=== PATIENT | female | born 1960 | race Caucasian/White ===

== ENCOUNTER 2016-12-14 21:49 | Inpatient (IN) | payer SELFPAY ==
[~2016-12-14] VITALS: Ht 157.5 cm; Wt 46.9 kg
[2016-12-14] MEDS ORDERED: MORPHINE SULFATE INJ 4 MG/ML DISP.SYRIN ONE (22:15)
[2016-12-14] MEDS ORDERED: ONDANSETRON HCL/PF 4 MG/2 ML VIAL ONE (22:15)
--- NOTE | 2016-12-14 22:15 | NUR ---
PT CAME IN WITH FAMILY FOR ANXIETY, NAUSEA, VOMITING AND GENERALIZED PAIN. SEEN BY MD FOR EVAL. IV ACCESS STARTED. BLOOD DRAWN FOR LABS. PT MEDICATED ORDERED. VSS. SAFETY AND COMFORT MEASURES PROVIDED. WILL MONITOR.
--- NOTE | 2016-12-14 22:22 | NUR ---
GHISLAINE AT BS.
[2016-12-14 22:23] LABS: BASOPHILS # (AUTO) 0.1 /CMM (0.0-0.2); BASOPHILS % (AUTO) 0.5 % (0.0-2.0); EOSINOPHILS # (AUTO) 0.1 /CMM (0.0-0.7); EOSINOPHILS % (AUTO) 0.5 % (0.0-6.0); HEMATOCRIT 39 % (33-45); HEMOGLOBIN 12.9 g/dL (11.5-14.8); LYMPHOCYTES # (AUTO) 4.9 /CMM (0.8-4.8); MEAN CORPUSCULAR HEMOGLOBIN 30 PG (26.0-33.0); MEAN CORPUSCULAR HGB CONC 34 g/dl (31.0-36.0); MEAN CORPUSCULAR VOLUME 90 fL (82-100); MONOCYTES # (AUTO) 0.5 /CMM (0.1-1.30); MONOCYTES % (AUTO) 3.5 % (2.0-12.0); NEUTROPHILS # (AUTO) 8.5 /CMM (1.8-8.9); NEUTROPHILS % (AUTO) 60.5 % (43.0-81.0); PLATELET COUNT (AUTO) 322 /CMM (150-450); RDW COEFFICIENT OF VARIATION 13.1 (11.5-15.0); RED BLOOD CELL COUNT(AUTO) 4.27 MIL/uL (4.0-5.2); WHITE BLOOD COUNT (AUTO) 14.1 K/uL (4.3-11.0)
--- NOTE | 2016-12-14 22:23 | NUR ---
PT IS UNABLE TO PROVIDE URINE SAMPLE AT THIS TIME.
[2016-12-14] MEDS ORDERED: MORPHINE SULFATE INJ 2 MG/ML DISP.SYRIN IV ONE (22:30)
[2016-12-14] MEDS ORDERED: ONDANSETRON HCL/PF 4 MG/2 ML VIAL IVP ONE (22:30)
[2016-12-14] MEDS ORDERED: IV NS 0.9% 1,000 ML BAG IV ONE (22:30)
[2016-12-14 22:38] LABS: CARBON DIOXIDE 29 mmol/L (21-32); CHLORIDE 106 mmol/L (98-107); CREATININE 0.7 mg/dL (0.6-1.3); GLUCOSE 138 mg/dL (74-106); POTASSIUM 3.5 mmol/L (3.5-5.1); SODIUM SERUM 143 mmol/L (136-145); UREA NITROGEN, BLOOD 12 mg/dL (7-18)
[2016-12-14 22:41] LABS: INR 1.06 (0.87-1.13); PROTHROMBIN TIME 11.4 SECS (9.5-12.7)
[2016-12-14 22:43] LABS: ALANINE AMINOTRANSFERASE 19 U/L (12-78); ALKALINE PHOSPHATASE 107 U/L (46-116); ASPARTATE AMINOTRANSFERASE 18 U/L (15-37); BILIRUBIN,DIRECT 0.1 mg/dL (0.0-0.2); BILIRUBIN,TOTAL 0.2 mg/dL (0.2-1.0); LIPASE 219 U/L (73-393); TOTAL PROTEIN, SERUM 3.3 g/dL (6.4-8.2)
[2016-12-14 22:47] LABS: TROPONIN I < 0.017 ng/mL (0.00-0.056)
--- NOTE | 2016-12-14 23:01 | NUR ---
PT STILL UNABLE TO PROVIDE URINE SAMPLE.
--- NOTE | 2016-12-14 23:02 | NUR ---
PT TAKEN TO CT.
--- NOTE | 2016-12-14 23:44 | NUR ---
PT REFUSES TO GIVE URINE SAMPLE. ASSISTANCE OFFERED, BED WEST OFFERED. MADE AWARE.
[2016-12-14] MEDS ORDERED: LORAZEPAM INJ 2 MG/ML VIAL ONE (23:49)
[2016-12-15] MEDS ORDERED: LORAZEPAM INJ 2 MG/ML VIAL IV ONE
[2016-12-15] MEDS ORDERED: CIPROFLOXACIN IV RTU 400 MG in PREMIX 1 EA IV SCH ×2
[2016-12-15] MEDS ORDERED: FLAGYL/NS RTU 500 MG/100 ML PIGGYBACK IV ONE
[2016-12-15] MEDS ORDERED: CIPROFLOXACIN IV RTU 200 ML IV ONE (00:01)
--- NOTE | 2016-12-15 00:20 | NUR ---
Report given to Marycarmen DAVILA for continuation of care.
[2016-12-15 00:46] VITALS: BP 117/73
--- NOTE | 2016-12-15 00:46 | NUR ---
MS RN ADMITTING NOTES: ADMITTED A 56 YO FEMALE PATIENT WHO WAS BROUGHT BY FAMILY TO ER DUE TO ABDOMINAL PAIN AND NAUSEA. PER SON, PATIENT HAD SOME SUSHI THIS NIGHT, AND THEN AFTERWARDS STATED THAT SHE HAD NAUSEA AND ABDOMINAL PAIN. PATIENT WAS BROUGHT TO [facility] FLOOR VIA GURNEY, AOX3, ON ROOM AIR, BREATHING EVEN AND UNLABORED. BREATH SOUNDS CLEAR TO AUSCULTATION. BOWEL SOUNDS HYPOACTIVE. PATIENT'S SON AT BEDSIDE TO HELP TRANSLATE PATIENT SPEAKS THAI, KNOWS ONLY LITTLE [place]. PIV OVER RAC G20 INTACT AND INFUSING WITH FLAGYL IV THAT WAS STARTED IN ER. ADMITTING CARE DONE, VS STABLE. BED IN LOWEST AND LOCKED POSITION AND SIDERAILS UP X3. WILL CONT TO MONITOR. Addendum: 12/15/16 at 0128 by ALEXANDRA MIJARES RN CORRECTED NOTES: PATIENT HAD IV CIPROFLOXACIN (NOT FLAGYL) RUNNING WHEN ADMITTED TO MS FLOOR.
[2016-12-15 01:00] VITALS: BP 117/73
[2016-12-15] MEDS ORDERED: IV NS 0.9% 1,000 ML IV PRN (01:06)
[2016-12-15] MEDS ORDERED: Z GUARD REMEDY 2 OZ OINT TP PRN (01:30)
[2016-12-15] MEDS ORDERED: ONDANSETRON HCL/PF 4 MG/2 ML VIAL IVP PRN (01:30)
[2016-12-15] MEDS ORDERED: ZOLPIDEM TARTRATE 5 MG TABLET PO PRN (01:30)
[2016-12-15] MEDS ORDERED: LEVOFLOXACIN 500 MG /D5W 100ML 500 MG in PREMIX 1 EA IV SCH ×2 (01:30→10:00)
[2016-12-15] MEDS ORDERED: MORPHINE SULFATE INJ 2 MG/ML DISP.SYRIN IV PRN (01:30)
[2016-12-15] MEDS ORDERED: ACETAMINOPHEN 325 MG TABLET PO PRN (01:30)
--- NOTE | 2016-12-15 01:38 | NUR ---
RN NOTES: SPOKE TO DR GUTIERREZ RE ORDER FOR LEVAQUIN 500 MG IV TO BE STARTED NOW, IV CIPROFLOXACIN HAS JUST BEEN ADMINISTERED IN THE ER TO PATIENT. PER MD, START THE LEVOFLOXACIN IV IN THE AM, AND THE CIPROFLOXACIN IS ONLY ONE TIME ORDER IN ER. NOTED AND CARRIED OUT.
[2016-12-15] MEDS ORDERED: METRONIDAZOLE 500MG/ NS 100ML 100 ML IV ONE (01:45)
[2016-12-15] MEDS: METRONIDAZOLE 500MG/ NS 100ML 500 MG in PREMIX 1 EA IV SCH ×2 (01:51→05:00)
--- NOTE | 2016-12-15 05:14 | NUR ---
RN NOTES: DID NOT ADMINISTER SCHEDULED FLAGYL 500 MG IV NOW, LAST DOSE WAS JUST GIVEN AT 0151 AM, 3 HRS AGO. NEXT DOSE SUPPOSED TO BE GIVEN AT 10 AM. WILL INFORM PHARMACY.
--- NOTE | 2016-12-15 06:55 | NUR ---
MS RN CLOSING NOTES: PATIENT IN BED, ASLEEP AT THIS TIME. BREATHING EVEN AND UNLABORED. APPEARS CALM AND IN NO DISTRESS. PIV OVER RAC G20 INTACT AND INFUSING WELL WITH NS RUNNING AT 125 ML/HR. DUE MEDS GIVEN. PROVIDED FOR COMFORT AND SAFETY. NO ACUTE CHANGE IN CONDITION NOTED THROUGH SHIFT. WILL ENDORSE TO AM RN FOR ALEX.
--- NOTE | 2016-12-15 07:20 | NUR ---
RN Initial Notes: Received patient resting in bed. Patient alert oriented X3, Maltese speaking. Non-labored breathing noted. Patient on room air. No signs of distress. Patient denies pain. IV site patent and intact. Bed in lowest/locked position. Call light within reach. Will continue to monitor. Son at bedside, translating for patient.
[2016-12-15 08:00] VITALS: BP 102/71
[2016-12-15] MEDS ORDERED: METRONIDAZOLE 500MG/ NS 100ML 500 MG in PREMIX 1 EA IV SCH ×2 (10:00→11:00)
[2016-12-15] MEDS ORDERED: LEVO500T15 PO (12:38)
[2016-12-15] MEDS ORDERED: METR500T PO (12:38)
--- NOTE | 2016-12-15 13:30 | NUR ---
MS RN Closing Notes: Patient discharged home per MD orders. Dr. Vinson spoke to patient and patient's on regarding treatment process and prescribed medications for discharged. Patient refused the Flagyl scheduled at 11:00 stating will be taken at home. Prescription given to patient and her son Carolina. Discharge instructions educated to patient. Her son, Carolina, translated to the patient. Valuables given to patient. Flu vaccine and Pneumoccocal vaccine received by patient somewhere else but forgotten when. IV taken out. Patent stable. Vital signs within normal range. Non-labored breathing noted. Patient denies pain. Patient left with son via private car.
[2016-12-16] MEDS ORDERED: LEVOFLOXACIN 500 MG /D5W 100ML 500 MG in PREMIX 1 EA IV SCH (02:00)
== END 2016-12-15 13:35 | disposition home or self-care (01) | DRG 392 ==
LOC: ER 21:51 → MED 12-15 00:40
PROVIDERS: ADMIT Internal Medicine; ATTEND Internal Medicine
DX: A09 Infectious gastroenteritis and colitis, unspecified (principal); F17.200 Nicotine dependence, unspecified, uncomplicated; K59.09 Other constipation; Z82.49 Family history of ischemic heart disease and other diseases of the circulatory system
CPT/HCPCS: 36415; 71010-TC; 71250-TC; 80048-TC; 80076-TC; 83690-TC; 84484-TC; 85025-TC; 85730-TC; 87081-TC; A4216; A4606; J0744; J1956; J2060; J2270; J2405; J3490; J7030; Z7610